=== PATIENT | male | born 1960 | race Hispanic/Latino ===

== ENCOUNTER 2018-04-26 10:19 | Emergency (ER) | payer OTHER ==
[2018-04-26 12:25] LABS: BASO # 0.1 K/uL (0.0-0.2); BASO % 0.9 % (0.0-2.0); EOS # 0.1 K/uL (0.0-0.7); EOS % 1.5 % (0.0-4.0); HEMOGLOBIN 15.5 g/dL (12.0-18.0); LYMPH # 1.3 K/uL (1.0-4.3); LYMPH % 22.5 % (20.0-40.0); MEAN CELL VOLUME 84.6 fl (80.0-94.0); MEAN CORPUSCULAR HEMOGLOBIN 28.3 pg (27.0-31.0); MEAN CORPUSCULAR HGB CONC 33.4 g/dL (33.0-37.0); MEAN PLATELET VOLUME 7.3 fl (7.2-11.7); MONO # 0.5 K/uL (0.0-0.8); NEUT % 67.1 % (50.0-75.0); RBC 5.5 Mil/uL (4.40-5.90); RED CELL DISTRIBUTION WIDTH 14.4 % (11.5-14.5); WHITE BLOOD COUNT 5.9 K/uL (4.8-10.8)
--- NOTE | 2018-04-26 12:42 | ED PDOC ---
HPI: General Adult Time Seen by Provider: 04/26/18 10:37 Chief Complaint (Nursing): Back Pain History Per: Patient Additional Complaint(s): Pt. states for over 1 year he's had progressively worsening "fatigue." States he noticed that symptoms have worsened since his best friend in October. Now he notices that the symptoms occur everyday. Reports that he feels his calves are heavy and that he has to cross his legs to relieve the heaviness. Further states that he made an appointment with his PMD, Dr. Woods, for tomorrow but no longer wanted to wait. Pt. was also told that he is forming a hump on his back that was due to scoliosis by Dr. Woods. Denies SOB, chest pain, palpitations, hx of DVT or PE, SI/HI, hallucinations, headache. Past Medical History Reviewed: Historical Data, Nursing Documentation, Vital Signs Vital Signs: Last Vital Signs Temp 99.3 F 04/26/18 10:29 Pulse 72 04/26/18 12:44 Resp 21 04/26/18 10:29 BP 130/94 H 04/26/18 10:29 Pulse Ox 99 04/26/18 12:44 - Family History Family History: States: Unknown Family Hx - Home Medications Home Medications: Ambulatory Orders Medication Instructions Recorded Clonazepam [Klonopin] 0.5 mg PO HS 06/11/17 Carbamide Peroxide [Debrox 15 Ml] 5 drop OT BID #1 bottle 06/12/17 - Allergies Allergies/Adverse Reactions: Allergies Allergy/AdvReac Type Severity Reaction Status Date / Time Penicillins Allergy Verified 06/11/17 23:08 Review of Systems ROS Statement: Except As Marked, All Systems Reviewed And Found Negative Musculoskeletal: Positive for: Leg Pain Neurological: Positive for: Weakness Physical Exam - Reviewed Nursing Documentation Reviewed: Yes Vital Signs Reviewed: Yes - Physical Exam Appears: Positive for: Well, Non-toxic, No Acute Distress Head Exam: Positive for: ATRAUMATIC, NORMAL INSPECTION, NORMOCEPHALIC Skin: Positive for: Normal Color, Warm. Negative for: Rash Eye Exam: Positive for: Normal appearance, EOMI, PERRL ENT: Positive for: Normal ENT Inspection Neck: Positive for: Normal, Painless ROM Cardiovascular/Chest: Positive for: Regular Rate, Rhythm Respiratory: Positive for: CNT, Normal Breath Sounds Pulses-Dorsalis Pedis (L): 2+ Pulses-Dorsalis Pedis (R): 2+ Gastrointestinal/Abdominal: Positive for: Normal Exam, Soft. Negative for: Tenderness Back: Positive for: Normal Inspection. Negative for: L CVA Tenderness, R CVA Tenderness, Vertebral Tenderness, Muscle Spasm Extremity: Positive for: Normal ROM. Negative for: Calf Tenderness (b/l) Neurologic/Psych: Positive for: Alert, Oriented. Negative for: Aphasia, Facial Droop - Laboratory Results Result Diagrams: 04/26/18 12:14 04/26/18 12:14 - ECG ECG: Positive for: Interpreted By Me ECG Rhythm: Positive for: Sinus Rhythm. Negative for: ST/T Changes Rate: 72 O2 Sat by Pulse Oximetry: 99 - Progress ED Course And Treament: Labs, duplex b/l lower ext, ekg ordered. 1640 Pt. evaluated by [place] match up worker, who spoke with psychiatrist and cleared pt. for discharge. Pt. advised to f/u with Dr. Woods as scheduled tomorrow without fail. Disposition - Clinical Impression Clinical Impression: Adjustment disorder, Fatigue - Patient ED Disposition Is Patient to be Admitted: No - Disposition Referrals: FAMILY PROVIDER,NO [Primary Care Provider] - [facility] [Outside] Disposition: Routine/Home Disposition Time: 16:40 Condition: STABLE Additional Instructions: FOLLOW UP WITH DR. WOODS TOMORROW WITHOUT FAIL STEFF PAIZ, thank you for letting us take care of you today. Your provider was Ga Gomes MD and you were treated for FATIGUE. The emergency medical care you received today was directed at your acute symptoms. If you were prescribed any medication, please fill it and take as directed. It may take several days for your symptoms to resolve. Return to the Emergency Department if your symptoms worsen, do not improve, or if you have any other problems. Please contact your doctor or call one of the physicians/clinics you have been referred to that are listed on the Patient Visit Information form that is included in your discharge packet. Bring any paperwork you were given at discharge with you along with any medications you are taking to your follow up visit. Our treatment cannot replace ongoing medical care by a primary care provider outside of the emergency department. Thank you for allowing the [facility] team to be part of your care today. If you had an X-Ray or CT scan: A Radiologist will review the ED reading if any change in treatment is needed we will contact you. If you had a blood, urine, or wound culture: It will take several days for the results, if any change in treatment is needed we will contact you. If you had an STI test: It will take 48 hours for the results. Please call after 1 week if you have not heard back. Instructions: Adjustment Disorder, Fatigue (DC) Forms: [place] ([place])
[2018-04-26 13:19] LABS: BLOOD UREA NITROGEN 17 mg/dl (9-20); CALCIUM 9.6 mg/dL (8.4-10.2); GFR AFRICAN-AMERICAN > 60; GFR NON-AFRICAN AMERICAN > 60
[2018-04-26 13:20] LABS: ALB/GLOB RATIO 1.2 (1.0-2.1); ALBUMIN 4.5 g/dL (3.5-5.0)
[2018-04-26 13:21] LABS: ALT/SGPT 27 U/L (21-72); AST/SGOT 29 U/L (17-59)
[2018-04-26 13:47] LABS: URINE BACTERIA RARE (<OCC); URINE BILIRUBIN NEGATIVE (NEGATIVE); URINE BLOOD NEGATIVE (NEGATIVE); URINE CLARITY SLIGHTY-CLOUDY (Clear); URINE COLOR YELLOW (YELLOW); URINE GLUCOSE (UA) NEG (Normal); URINE LEUKOCYTE ESTERASE NEG Leu/uL (Negative); URINE PROTEIN NEGATIVE (NEGATIVE); URINE UROBILINOGEN 0.2-1.0 mg/dL (0.2-1.0)
--- NOTE | 2018-04-26 14:09 | US ---
Date of service: 04/26/2018 PROCEDURE: Bilateral lower extremity venous duplex Doppler. HISTORY: b/l calf pain COMPARISON: None available. TECHNIQUE: Bilateral common femoral, superficial femoral, popliteal and posterior tibial veins were evaluated. Flow was assessed with color Doppler, compressibility, assessment of phasic flow and augmentation response. FINDINGS: COMMON FEMORAL VEIN: Right CFV: Unremarkable. Left CFV: Unremarkable. SUPERFICIAL FEMORAL VEIN: Right SFV: Unremarkable. Left SFV: Unremarkable. POPLITEAL VEIN: Right Popliteal: Unremarkable. Left Popliteal: Unremarkable. POSTERIOR TIBIAL VEIN: Right PTV: Unremarkable. Left PTV: Unremarkable. OTHER FINDINGS: None. IMPRESSION: No evidence of deep venous thrombosis.
--- NOTE | 2018-04-26 16:29 | CARD ---
APPROVED REPORT Date of service: 04/26/2018 EKG Measurement Heart [id number] <Conclusion> Normal sinus rhythm Normal ECG
[2018-04-26 17:16] VITALS: BP 128/76; PULSE 78; RESP 18; TEMP 98.1; O2SAT 100
== END 2018-04-26 17:15 | disposition home or self-care (01) ==
LOC: H.ER 10:19 → SUPCPDRO 10:19 → H.ER 17:15
DX: R53.83 Other fatigue (principal); F43.20 Adjustment disorder, unspecified

== ENCOUNTER 2018-10-02 15:30 | Emergency (ER) | payer OTHER ==
[2018-10-02 15:55] VITALS: PULSE 85; RESP 22; TEMP 98.2; O2SAT 99
[2018-10-02 17:10] LABS: BASO % 0.5 % (0.0-2.0); EOS # 0.1 K/uL (0.0-0.7); EOS % 0.8 % (0.0-4.0); HEMOGLOBIN 14.5 g/dL (12.0-18.0); LYMPH # 1.7 K/uL (1.0-4.3); LYMPH % 20.1 % (20.0-40.0); MEAN CELL VOLUME 85.4 fl (80.0-94.0); MEAN CORPUSCULAR HEMOGLOBIN 27.8 pg (27.0-31.0); MEAN CORPUSCULAR HGB CONC 32.5 g/dL (33.0-37.0); MEAN PLATELET VOLUME 7.5 fl (7.2-11.7); MONO # 0.7 K/uL (0.0-0.8); MONO % 8.3 % (0.0-10.0); NEUT # 5.8 K/uL (1.8-7.0); NEUT % 70.3 % (50.0-75.0); NRBC % 0.1 % (0.0-0.0); RBC 5.23 Mil/uL (4.40-5.90); RED CELL DISTRIBUTION WIDTH 13.8 % (11.5-14.5); WHITE BLOOD COUNT 8.3 K/uL (4.8-10.8)
[2018-10-02 17:17] LABS: INR 1.1; PROTHROMBIN TIME 12.6 Seconds (9.8-13.1)
[2018-10-02 17:20] LABS: ALB/GLOB RATIO 1.2 (1.0-2.1); ALBUMIN 4.4 g/dL (3.5-5.0); ALT/SGPT 23 U/L (21-72); AST/SGOT 28 U/L (17-59); BLOOD UREA NITROGEN 22 mg/dl (9-20); CALCIUM 9.4 mg/dL (8.4-10.2); GFR NON-AFRICAN AMERICAN > 60; PARTIAL THROMBOPLASTIN TIME 33.5 Seconds (25.6-37.1)
[2018-10-02 17:22] LABS: SQUAMOUS EPITHIAL < 1 /hpf (0-5); URINE BACTERIA RARE (<OCC); URINE BILIRUBIN NEGATIVE (NEGATIVE); URINE BLOOD SMALL (NEGATIVE); URINE CLARITY SLIGHTY-CLOUDY (Clear); URINE COLOR YELLOW (YELLOW); URINE GLUCOSE (UA) NEG (NEGATIVE); URINE LEUKOCYTE ESTERASE NEG Leu/uL (Negative); URINE PROTEIN 30 mg/dL (NEGATIVE)
--- NOTE | 2018-10-02 18:01 | ED PDOC ---
Lower Extremity Pain/Injury Time Seen by Provider: 10/02/18 15:59 Chief Complaint (Nursing): Lower Extremity Problem/Injury Chief Complaint (Provider): Lower Extremity Problem/Injury History Per: Patient History/Exam Limitations: no limitations Onset/Duration Of Symptoms: Days (x3) Current Symptoms Are (Timing): Still Present Additional Complaint(s): Patient is a 58 y/o male with a PMHx of degenerative disc disease of lumbar spine, chronic leg weakness and chronic tremors who presents to the ED for evaluation of leg weakness over the past three days. Patient states the weakness in his legs has worsened and how now he has trouble moving his trunk or initiating motion. Patient reports to have difficulty getting out of bed. The patient is hesitant above moving. Patient denies pain, falling, or acute injury. Of note, patient states the chronic tremors he has had for 8 years worsened after his brothers last year. Patient is in between PCP, appointment with new physician on 10/08/2018. The patient has not seen neurologist for chronic movement disorders. PCP: Dr. Delgadillo Past Medical History Reviewed: Historical Data, Nursing Documentation, Vital Signs Vital Signs: Last Vital Signs Temp 98.2 F 10/02/18 15:52 Pulse 85 10/02/18 15:52 Resp 22 10/02/18 15:52 BP 124/80 10/02/18 15:52 Pulse Ox 99 10/02/18 15:52 - Medical History PMH: Denies: Diabetes, Hepatitis, HIV, HTN, Seizures, Sexually Transmitted Disease Other PMH: Degenerative Disc Disease of Lumbar Spine, Chronic Leg Weakness, Tremors - Surgical History Surgical History: No Surg Hx - Family History Family History: States: No Known Family Hx - Social History Current smoker - smoking cessation education provided: No Alcohol: Social - Home Medications Home Medications: Ambulatory Orders Medication Instructions Recorded Clonazepam [Klonopin] 0.5 mg PO HS 06/11/17 Carbamide Peroxide [Debrox 15 Ml] 5 drop OT BID #1 bottle 06/12/17 Ibuprofen [Motrin Tab] 600 mg PO Q8 PRN #60 tab 10/02/18 Oseltamivir Cap [Tamiflu] 75 mg PO BID #10 cap 10/02/18 - Allergies Allergies/Adverse Reactions: Allergies Allergy/AdvReac Type Severity Reaction Status Date / Time Penicillins Allergy Verified 06/11/17 23:08 Review of Systems ROS Statement: Except As Marked, All Systems Reviewed And Found Negative (as per HPI) Physical Exam - Reviewed Nursing Documentation Reviewed: Yes Vital Signs Reviewed: Yes - Physical Exam Appears: Positive for: Non-toxic, No Acute Distress Head Exam: Positive for: ATRAUMATIC, NORMAL INSPECTION, NORMOCEPHALIC Skin: Positive for: Warm, Dry Eye Exam: Positive for: EOMI, PERRL ENT: Positive for: Pharynx Is (clear) Neck: Positive for: Painless ROM, Supple Cardiovascular/Chest: Positive for: Regular Rate, Rhythm. Negative for: Murmur Respiratory: Positive for: Normal Breath Sounds. Negative for: Wheezing, Respiratory Distress Gastrointestinal/Abdominal: Positive for: Soft. Negative for: Tenderness Back: Positive for: Normal Inspection Extremity: Positive for: Normal ROM ( of Bilateral Lower Extremity; Painless). Negative for: Tenderness, Deformity (on Back), Swelling Lymphatic: Negative for: Adenopathy Neurologic/Psych: Positive for: Alert, Oriented (x3). Negative for: Motor/Sensory Deficits - Laboratory Results Result Diagrams: 10/02/18 16:51 10/02/18 16:51 - ECG O2 Sat by Pulse Oximetry: 99 (RA) Pulse Ox Interpretation: Normal Medical Decision Making Medical Decision Making: Time: 1645 Impression: Movement Disorder DDx includes but not limited to electrolyte abnormality, dehydration, anemia, viral syndrome, and flu. Plan: Type and Screen CMP Creatine Phosphokinase Lact Acid, Plasma Magnesium Phosphorus TSH CBC PTT Prothrombin Time Tamiflu Cap 75 mg PO Urine Culture IV Insertion ([place]) Influenza A B UA Pt flu A+ No other clinically significant abnormalities DW pt findings. Advised rest, fluids, f/u PMD as scheduled. Also advised to f/u neurology concerning his tremors and leg weakness. Reasons to return to ER discussed. Stable for DC. Scribe Attestation: Documented by Travis Glaser, acting as a scribe for Dr. Naomi Landon. Provider Scribe Attestation: All medical record entries made by the Scribe were at my direction and personally dictated by me. I have reviewed the chart and agree that the record accurately reflects my personal performance of the history, physical exam, medical decision making, and the department course for this patient. I have also personally directed, reviewed, and agree with the discharge instructions and disposition. Disposition - Clinical Impression Clinical Impression: Influenza - Disposition Referrals: Hector Bustos MD [Medical Doctor] - (YOU SHOULD FOLLOW UP WITH YOUR DOCTOR SCHEDULED. YOU SHOULD CONSIDER FOLLOWING UP WITH A NEUROLOGIST WELL FOR FURTHER MANAGEMENT OF YOUR TREMORS AND LEG WEAKNESS) Disposition: Routine/Home Disposition Time: 18:00 Condition: STABLE Prescriptions: Ibuprofen [Motrin Tab] 600 mg PO Q8 PRN #60 tab PRN Reason: bodyaches or fever Oseltamivir Cap [Tamiflu] 75 mg PO BID #10 cap Instructions: Flu, Adult (DC) Forms: [facility] ([place]in)
[2018-10-02 18:38] VITALS: BP 125/85
== END 2018-10-02 18:35 | disposition home or self-care (01) ==
LOC: H.ER 15:30
DX: J09.X2 Influenza due to identified novel influenza A virus with other respiratory manifestations (principal); G25.9 Extrapyramidal and movement disorder, unspecified; Z88.0 Allergy status to penicillin